=== PATIENT | female | born 1980 | race Caucasian/White ===

== ENCOUNTER 2018-02-03 16:03 | Emergency (ER) | payer BC, OTHER ==
[~2018-02-03] VITALS: Ht 160 cm; Wt 72.6 kg
[2018-02-03 16:29] LABS: *URINE HCG, QUAL NEGATIVE (NEGATIVE)
[2018-02-03 17:36] VITALS: BP 119/79
--- NOTE | 2018-02-03 17:38 | NUR ---
Patient discharged to home in stable conditon. Written and verbal after care instructions given. Patient verbalizes understanding of instructions. Pt denies any dizziness, numbness. Pt left ER in steady gait.
== END 2018-02-03 17:35 | disposition home or self-care (01) ==
LOC: ER 16:03
DX: G43.409 Hemiplegic migraine, not intractable, without status migrainosus (principal)
CPT/HCPCS: 70450; 84703; A4663